=== PATIENT | male | born 1965 | race Caucasian/White ===

== ENCOUNTER 2025-01-09 18:17 | Emergency (ER) | payer MEDICAID, OTHER ==
[~2025-01-09] VITALS: Ht 188 cm; Wt 95.3 kg
[~2025-01-09 18:17] MED LIST: SIMV-49 PO
[2025-01-09 18:32] VITALS: BP 115/72; TEMP 98.4
[2025-01-09] MEDS ORDERED: CLOT15CR27 TP (19:39)
[2025-01-09 19:46] VITALS: O2SAT 96
== END 2025-01-09 19:46 | disposition home or self-care (01) ==
LOC: ER 18:31
DX: B35.6 Tinea cruris (principal); E78.00 Pure hypercholesterolemia, unspecified; K62.5 Hemorrhage of anus and rectum; M19.90 Unspecified osteoarthritis, unspecified site